=== PATIENT | female | born 1995 | race Caucasian/White ===

== ENCOUNTER 2024-02-12 12:28 | Emergency (ER) | payer BC, SELFPAY ==
[2024-02-12 12:52] VITALS: BP 114/73
[2024-02-12 13:21] LABS: % Basophils 0.4 % (0-2); % Eosinophils 2.4 % (0-6); % Immature Granulocytes 0.1 % (0-0.5); % Lymphocytes 26.2 % (20.5-51.1); % Monocytes 7.3 % (1.7-9.3); % Neutrophils 63.6 % (42.2-75.2); Absolute Eosinophils 0.2 10^3/uL (0-0.7); Absolute Lymphocytes 1.9 10^3/uL (1.2-3.4); Absolute Monocytes 0.5 10^3/uL (0.1-0.6); Absolute Neutrophils 4.6 10^3/uL (1.4-6.5); Hematocrit 38.1 % (37.0-47.0); Hemoglobin 13.2 g/dL (12.0-16.0); Mean Corp Hgb Conc. 34.6 g/dL (33.0-37.0); Mean Corpuscular Hgb 30.5 pg (27.0-31.0); Mean Platelet Volume 9.3 fL (7.4-10.4); Nucleated Red Blood Cells % 0 %; Platelet Count 223 10^3/uL (130-400); Red Blood Cell Count 4.33 10^6/uL (4.20-5.40); Red Cell Dist. Width 13.2 % (11.5-14.5); White Blood Cell Count 7.2 10^3/uL (4.8-10.8)
[2024-02-12 13:31] LABS: Urine Albumin Negative (Neg - Trace); Urine Bilirubin Negative (Negative); Urine Character Clear (Clear); Urine Color Yellow; Urine Glucose Negative (Negative); Urine Ketone Negative (Negative); Urine Leukocyte Negative (Negative); Urine Nitrite Negative (Negative); Urine Occult Blood Trace (Negative); Urine Urobilinogen Negative (Neg - 1+); Urine pH 6.5 (5.0-9.0)
[2024-02-12 13:42] LABS: HCG, Serum Qualitative Screen Negative
[2024-02-12 13:49] LABS: ALT (SGPT) 21 U/L (0-35); AST (SGOT) 22 U/L (14-36); Alkaline Phosphatase 34 U/L (38-126); Blood Urea Nitrogen 12 mg/dl (7-17); Calcium 9.8 mg/dl (8.4-10.2); Carbon Dioxide 27 mmol/L (22-30); Chloride 101 mmol/L (98-107); Glucose 83 mg/dl (70-99); Potassium 3.7 mmol/L (3.5-5.1); Sodium 141 mmol/L (135-145); Total Bilirubin 0.3 mg/dl (0.2-1.3); Total Protein 7.6 g/dl (6.3-8.2); eGFR > 60.00
[2024-02-12 13:57] LABS: Urine Amorphous Seen; Urine Red Blood Cell 0-2 /HPF (0-2); Urine White Cell 0-2 /HPF (0-5)
[2024-02-12 15:15] VITALS: BMI 23.2
--- NOTE | 2024-02-12 15:15 | EDRN ---
Dr. Luong in to see pt.
--- NOTE | 2024-02-12 15:16 | ED.GENMED ---
History of Present Illness
General
Chief Complaint: Abdominal Pain
Time Seen by Provider: 02/12/24 15:06
History of Present Illness
History of Present Illness:
Patient is a 28-year-old woman who is otherwise healthy and has never been presenting to the emergency department with abdominal pain. Patient states that 4 to 5 days ago she developed right lower quadrant abdominal pain. Is 5 out of 10
constant pain. It is similar to when she had ovarian cyst rupture. She states that when the cyst rupture to she did not require any surgical intervention and the pain resolved on its own. She has been having nausea with the pain. She has been
actively trying to get with her partner. Today she started her period. She then called her line producer given that she was not with the abdominal pain and her MANAGER DIGITAL sent her here to rule out ovarian torsion. Patient denies any fevers or
chills. No vomiting. She is having some back pain which is normal with her period cramps. No urinary symptoms. No vaginal discharge. She sexually active with 1 person no prior medical history or surgical history.
Phy Exam
Physical Exam
Physical Exam:
GENERAL: in no acute distress
HEENT: normocephalic, extraocular movements intact, moist oral mucosa
NECK: normal inspection
RESPIRATORY: no respiratory distress, clear to auscultation bilaterally
CARDIOVASCULAR: regular rate and rhythm
ABDOMEN/: soft, non-distended, mild right lower quadrant tenderness to palpation, no rebound or guarding
EXTREMITIES: non-tender, no edema/swelling
NEUROLOGIC: awake and alert, moves all extremities
SKIN: warm
Course
Orders/Labs/Results
Orders:
Orders
02/12/24 12:51
Test Result ONCE
02/12/24 13:09
Complete Blood Count/With Diff Urgent
Comprehensive Metabolic Panel Urgent
HCG, Serum Qualitative Screen Urgent
Urinalysis Reflex To Culture Urgent
Date Specimen was Collected: 02/12/24
Time Specimen was Collected: 12:50
Urine Microscopic Reflex Cult Urgent
02/12/24 15:15
US Abdomen - Appendix Only Urgent
Comment:
Reason For Exam: RLQ pain
US Pelvis W Transvag Combined Urgent
Comment:
Reason For Exam: RLQ pain
02/12/24 16:49
CT Abd/pelvis W Iv Cont Urgent
Comment:
Reason For Exam: RLQ abd pain
Ibuprofen [Motrin] 800 mg PO NOW STA
Abnormal Lab Results
02/12/24
13:09
Alkaline Phosphatase 34 L U/L
(38-126)
Ur Occult Blood Reflex Trace A
(Negative)
02/12/24 13:09
02/12/24 13:09
Vital Signs
Initial and Last Documented VS:
Initial Vital Signs
Temp Pulse Resp BP Pulse Ox
98.4 F 82 18 114/73 98
02/12/24 12:52 02/12/24 12:52 02/12/24 12:52 02/12/24 12:52 02/12/24 12:52
Last Documented Vital Signs
Temp Pulse Resp BP Pulse Ox
98.4 F 79 16 101/77 100
02/12/24 12:52 02/12/24 17:29 02/12/24 17:29 02/12/24 17:29 02/12/24 17:29
MDM/Problems Addressed
Differential Diagnosis Includes:
Patient is a 28-year-old presenting to the emergency department with 5 days of constant right lower quadrant abdominal pain with nausea. Vitals are unremarkable and exam shows a woman who is comfortable appearing with mild right lower quadrant
tenderness. Differential is broad but consists of , regnancy, torsion, appendicitis, cyst rupture. History and exam not consistent with kidney stone or tubo-ovarian abscess. Blood work obtained prior to evaluation is unremarkable. Her
hCG is negative. Urine does have some blood but she is currently on her .period. After shared decision making we will start off with pelvic ultrasound as well as a ultrasound of the appendix. I did offer pain and antiemetics however patient would
prefer to hold off at this time.
*Critical Care Note
Total Time (30-74mins, 75-104mins- exclusive of procedures): Not Applicable
Update Note
Update Note:
Ultrasound negative for torsion or ruptured cyst. Unfortunately the appendix was unable to be visualized. On reevaluation patient says she still having abdominal pain but no nausea. Did give Motrin. After shared decision making we will obtain CT
scan.
CT scan with no signs appendicitis. She does have some degree of constipation. Patient does state that she noticed some harder stools today. Discussed starting MiraLAX. Strict return precautions given. Will discharge at this time.
ED Attending Note
-
Portions of this chart may have been created with voice recognition software.� Occasional wrong word or��sound alike� substitutions may have occurred due to the inherent limitations of voice recognition software.
Discharge Plan
Departure
Patient Disposition: Home (Routine Discharge)
Date of Disposition: 02/12/24
Time of Disposition: 19:28
Patient with high blood pressure during this ER visit?: No
Discharge Problem:
Abdominal pain, Constipation
Instructions: Abdominal Pain
Referrals:
PRIVATE,PHYSICIAN [Family Provider] -
Interventions
Interventions:
*Risk Screen - Suicide Last Done: 02/12/24 12:52
*General Assessment Last Done: 02/12/24 15:16
*Neglect/Abuse Screening Last Done: 02/12/24 12:52
ED- Fall Risk Assessment Last Done: 02/12/24 15:16
*ED COVID-19 Vaccine History Last Done: 02/12/24 15:16
IR-Dapost-Yfvrqvbaol Assessment Last Done: 02/12/24 15:48
Discharge Date and Time
Print Language: CHINESE
--- NOTE | 2024-02-12 15:17 | EDRN ---
Pt arrives to ER for 4 days of pelvic pain like in her R ovarian area. Pt having nausea pretty much constantly. Pt also having some bloating. Pain has been a 5/10 and now 3/10. Pt describes pain as a dull/ache. Pain worse w/ crossing of legs.
[2024-02-12 15:20] VITALS: BP 155/77
--- NOTE | 2024-02-12 15:47 | EDRN ---
Pt is full and awaiting to go to [facility] at this time.
[2024-02-12 16:35] VITALS: BP 108/72
[2024-02-12] MEDS: MOTRIN 800 MG PO (17:06)
[2024-02-12 17:29] VITALS: BP 101/77
== END 2024-02-12 20:01 | disposition home or self-care (01) ==
LOC: EMR 12:28
PROVIDERS: Physician Assistant Medical; EMERGENCY PHYSICIAN Student in an Organized Health Care Education/Training Program
DX: R10.31 Right lower quadrant pain (principal); K59.00 Constipation, unspecified
CPT/HCPCS: 99284; 74177; 76705; 76830; 76856; 80053; 81003; 81015; 84703; 85025; Q9967